=== PATIENT | female | born 1955 | race African-American/Black ===

== ENCOUNTER 2016-06-03 14:21 | Emergency (ER) | payer OTHER ==
[2016-06-03] MEDS ORDERED: Acetaminophen 325 MG TAB ONE (14:48)
[2016-06-03] MEDS ORDERED: predniSONE 20 MG TAB ONE (14:50)
--- NOTE | 2016-06-03 15:50 | RAD ---
PORTABLE CHEST: History: Malaise, cough. FINDINGS: I cannot exclude patchy infiltrate in the region of the lingula. There is a density that obscures p ortions of the left heart border in this region. Recommend better evaluation of the chest with upri ght PA and lateral views. IMPRESSION: Question lingular infiltrate. Recommend upright PA and lateral views of the chest. POS: [facility]
--- NOTE | 2016-06-03 16:14 | RAD ---
PA AND LATERAL CHEST 06/03/16 HISTORY: Cough. Portable exam showed density in the left mid lung obscuring heart border. PA view again shows abnormal density in the left mid lung field obscuring portions of the heart bord er. This is worrisome for subtle lingular infiltrate given the history of cough. Short term followup is recommended. IMPRESSION: Continued evidence of subtle lingular infiltrate. Recommend followup exam. POS: [facility]
--- NOTE | 2016-06-03 16:56 | PICIS ---
[facility] EMERGENCY RECORD TRIAGE (TueJun 03, 2016 14:32 BDON) TRIAGE NOTES: Generalized bodyaches with a cough. (TueJun 03, 2016 14:32 BDON) PATIENT: NAME: Greta Raphael, AGE: 61, GENDER: female, : Tue1955, TIME OF GREET: TueJun 03, 2016 14:22, PREFERRED LANGUAGE: Bahraini, ETHNICITY: Not or , ECODE BILLING MAP: [facility], SSN: [id number], Zip Code: [address], KG WEIGHT: 75.75, PHONE: , , , PERSON ID: [id number], PCP: Talya Qiu Justin. (TueJun 03, 2016 14:32 BDON) COMPLAINT: FLU LIKE SYMPTOMS. (TueJun 03, 2016 14:32 BDON) ADMISSION: URGENCY: 4 Non Urgent, ADMISSION SOURCE: Home, TRANSPORT: Walk-in, BED: TRIAGE. (TueJun 03, 2016 14:32 BDON) ASSESSMENT: Assessment: Generalized bodyaches with a cough, Symptoms began 3 days ago. (14:38 BDON) LMP: LMP: Menopause. (14:38 BDON) TREATMENTS IN PROGRESS: Treatments given Prehospital: tylenol 1100. (14:38 BDON) PROVIDERS: TRIAGE NURSE: May Otero RN. (TueJun 03, 2016 14:32 BDON) VITAL SIGNS: BP 108/60, Pulse 71, Resp 17, Temp 98.0, (Oral), Pain 3, O2 Sat 100, Time 06/03/2016 14:30. (14:30 BDON) PREVIOUS VISIT ALLERGIES: Sulfa (Sulfonamide Antibiotics). (TueJun 03, 2016 14:32 BDON) Sulfa (Sulfonamide Antibiotics). (14:38 BDON) KNOWN ALLERGIES Sulfa (Sulfonamide Antibiotics) CURRENT MEDICATIONS Protonix: TABLET, DELAYED RELEASE (ENTERIC COATED) : Strength - 20 mg : ORAL Patient Dose: once a day. (14:34 BDON) Lyrica: CAPSULE : Strength - 150 mg : ORAL Patient Dose: once a day. (14:34 BDON) unknown BP pill ...starts with A (14:35 BDON) Requip: TABLET : Strength - 5 mg : ORAL Patient Dose: 2 times a day. (14:36 BDON) [place]: TABLET : Strength - 10 mg-325 mg : ORAL Patient Dose: Unknown. (14:36 BDON) VITAL SIGNS (14:30 BDON) VITAL SIGNS: BP: 108/60, Pulse: 71, Resp: 17, Temp: 98.0 (Oral), Pain: 3, O2 sat: 100, Time: 06/03/2016 14:30. NURSING ASSESSMENT: ENT (14:43 BDON) CONSTITUTIONAL: Patient arrives ambulatory, Gait steady, History &a-1R&a+25V*p+0X*v5706A*c202B*c15G*c2P*p-0X&a-25V&a+1R Name: Greta Raphael : 1955 F61 MedRec: [id number] AcctNum: [id number] Prepared: Lauren Jun 03, 2016 18:00 by Interface Page 1 of 8 pMD [facility] EMERGENCY RECORD obtained from patient, Patient appears, uncomfortable, Patient cooperative, Patient alert, Oriented to person, place and time, Skin warm, Skin dry, Skin normal in color, Patient is well-groomed. PAIN: aching pain, generalized. ENT: Congestion, Able to swallow, Speech normal. RESPIRATORY/CHEST: Respiratory assessment findings include respiratory effort easy, Respirations regular, Conversing normally, Neck and chest exam findings include trachea midline, Associated with cough. SAFETY: Cart/Stretcher in lowest position, Hospital ID band on. NURSING PROCEDURE: BEDSIDE RADIOLOGY (15:06 CCRI) BEDSIDE RADIOLOGY: Bedside radiology performed by CC, Portable chest x-ray performed. NURSING PROCEDURE: DISCHARGE NOTE (16:29 BDON) DISCHARGE: Patient discharged to home, ambulating without assistance, Summary of Care printed/ provided, Patient requested and was provided an electronic copy of Discharge Instructions, Transition record given to patient, Discharge instructions given to patient, Simple or moderate discharge teaching performed, Prescriptions given and instructions on side effects given, Medication reconciliation form given, Above person(s) verbalized understanding of discharge instructions and follow-up care, Patient treated and evaluated by physician. ORDER DETAILS Order Name: ERRT * Smal Vol Neb Initial Trmt, Status: Active, Time: 14:57 06/03/2016, User: NIK, - Ordered for: MD Jett Kim, - Entered by: LYNN Otero, [facility] Jun 03, 2016 14:57, - Quantity: 1, Order Name: Influenza A&B Ag Screen, Status: Active, Time: 14:32 06/03/2016, User: NIK, - Ordered for: MD Jett Kim, - Entered by: LYNN Otero, [facility] Jun 03, 2016 14:32, - Quantity: 1, Order Name: XR Chest 1 View Portable, Status: Active, Time: 14:46 06/03/2016, User: SÁNCHEZ, - Ordered for: MD Jett Kim, - Entered by: MD Jett Kim - [facility] Jun 03, 2016 14:46, - Quantity: 1, Order Name: XR Chest Pa & Lat STANDARD, Status: Active, Time: 15:44 06/03/2016, User: SÁNCHEZ, - Ordered for: MD Jett Kim, - Entered by: MD Jett Kim [facility] Jun 03, 2016 15:44, - Quantity: 1. &a-1R&a+25V*p+0X*m0737S*c202B*c15G*c2P*p-0X&a-25V&a+1R Name: Greta Raphael : 1955 F61 MedRec: [id number] AcctNum: [id number] Prepared: TueJun 03, 2016 18:00 by Interface Page 2 of 8 pMD [facility] EMERGENCY RECORD MEDICATION ADMINISTRATION SUMMARY Drug Name: levofloxacin oral, Dose Ordered: 1 tab(s), Route: Oral, Status: Given, Time: 16:23 06/03/2016, Drug Name: *Tylenol, Dose Ordered: 650 mg, Route: Oral, Status: Given, Time: 14:57 06/03/2016, Drug Name: DuoNeb, Dose Ordered: 3 mL, Route: Nebulize, Status: Given, Time: 14:56 06/03/2016, Drug Name: predniSONE oral, Dose Ordered: 40 mg, Route: Oral, Status: Given, Time: 14:56 06/03/2016, *Additional information available in notes, Detailed record available in Medication Service section. MEDICATION SERVICE DuoNeb: Order: DuoNeb (ipratropium bromide/albuterol sulfate) - Dose: 3 mL : Nebulize Schedule: Now Ordered by: Carol Ann Jett MD Entered by: Carol Ann Jett MD [facility] Jun 03, 2016 14:45 Documented as given by: May Otero RN [facility] Jun 03, 2016 14:56 Patient, Medication, Dose, Route and Time verified prior to administration. Amount given: 3 ml, Correct patient, time, route, dose and medication confirmed prior to administration, Patient advised of actions and side-effects prior to administration, Allergies confirmed and medications reviewed prior to administration. levofloxacin oral: Order: levofloxacin oral (levofloxacin) - Dose: 1 tab(s) : Oral Schedule: Now Ordered by: Carol Ann Jett MD Entered by: Carol Ann Jett MD [facility] Jun 03, 2016 16:18 Documented as given by: May Otero RN [facility] Jun 03, 2016 16:23 Patient, Medication, Dose, Route and Time verified prior to administration. Site: Medication administered P.O., Correct patient, time, route, dose and medication confirmed prior to administration, Patient advised of actions and side-effects prior to administration, Allergies confirmed and medications reviewed prior to administration, Patient in position of comfort, Cart in lowest position, Family at bedside. predniSONE oral: Order: predniSONE oral (prednisone) - Dose: 40 mg : Oral Schedule: Now Ordered by: Carol Ann Jett MD Entered by: Carol Ann Jett MD [facility] Jun 03, 2016 14:46 Documented as given by: May Otero RN [facility] Jun 03, 2016 14:56 Patient, Medication, Dose, Route and Time verified prior to administration. Site: Medication administered P.O., Correct patient, time, route, dose and medication confirmed prior to administration, Patient advised of actions and side-effects prior to administration, &a-1R&a+25V*p+0X*a9702A*c202B*c15G*c2P*p-0X&a-25V&a+1R Name: Greta Raphael : 1955 F61 MedRec: [id number] AcctNum: [id number] Prepared: TueJun 03, 2016 18:00 by Interface Page 3 of 8 pMD [facility] EMERGENCY RECORD Allergies confirmed and medications reviewed prior to administration. Tylenol: Order: Tylenol (acetaminophen) - Dose: 650 mg : Oral Schedule: Now Notes: 650 mg tylenol Ordered by: Carol Ann Jett MD Entered by: Carol Ann Jett MD [facility] Jun 03, 2016 14:47 Documented as given by: May Otero RN [facility] Jun 03, 2016 14:57 Patient, Medication, Dose, Route and Time verified prior to administration. Site: Medication administered P.O., Correct patient, time, route, dose and medication confirmed prior to administration, Patient advised of actions and side-effects prior to administration, Allergies confirmed and medications reviewed prior to administration. HPI URI (14:54 KNGU) CHIEF COMPLAINT: Patient presents for evaluation of nasal congestion, Patient presents for evaluation of cough. HISTORIAN: History provided by patient, cough ache flu like symptoms x 2 days. LOCATION: Symptoms are generalized. QUALITY: Pain is dull in nature, described as aching. SEVERITY: Maximum severity of symptoms moderate, Currently symptoms are moderate. TIME COURSE: Gradual onset of symptoms, There has been no change in the patient's symptoms over time. ASSOCIATED WITH: Associated with chills, Associated with fever, No associated shortness of breath. EXACERBATED BY: Patient's condition exacerbated by nothing. RELIEVED BY: Patient's condition relieved by over the counter medications. ROS (14:56 KNGU) CONSTITUTIONAL: Historian reports fever, reports weakness. EYES: Negative eye review of systems. ENT: Historian reports rhinorrhea. CARDIOVASCULAR: Negative cardiovascular review of systems. RESPIRATORY: Historian reports cough, reports wheezing. GI: Negative gastrointestinal review of systems. MUSCULOSKELETAL: Negative musculoskeletal review of systems. SKIN: Negative skin review of systems. NEUROLOGIC: Negative neurologic review of systems. NOTES: All systems reviewed, negative except as described above. PAST MEDICAL HISTORY (14:38 BDON) MEDICAL HISTORY: Notes: fibermylagia, Flu vaccine not up to date, Tetanus not up to date, Pneumococcal vaccine not up to date, Past medical history includes history of hypertension, which has been &a-1R&a+25V*p+0X*k4787B*c202B*c15G*c2P*p-0X&a-25V&a+1R Name: Greta Raphael : 1955 F61 MedRec: [id number] AcctNum: [id number] Prepared: TueJun 03, 2016 18:00 by Interface Page 4 of 8 pMD [facility] EMERGENCY RECORD treated. FEMALE SURGICAL HISTORY: Patient has no surgical history. PSYCHIATRIC HISTORY: No previous psychiatric history. SOCIAL HISTORY: Patient denies alcohol use, Patient denies drug use, Patient currently uses tobacco, smokes cigarettes, Lives at home, with family. PHYSICAL EXAM (14:57 KNGU) CONSTITUTIONAL: Vital signs reviewed, Patient afebrile, Pulse normal, Blood pressure normal, Respiratory rate normal, Patient alert and oriented to person, place and time. HEAD: Head exam normal. EYES: Eye exam normal. ENT: Nose exam included findings of, clear nasal discharge, Pharynx exam normal. NECK: Neck exam normal. RESPIRATORY CHEST: Respiratory exam included findings of no respiratory distress, Wheezing present, Rhonchi present, Chest exam included findings of chest movement symmetrical. CARDIOVASCULAR: Cardiovascular assessment normal. ABDOMEN FEMALE: Abdominal exam normal. SKIN: Skin exam normal. PSYCHIATRIC: Psychiatric exam included findings of patient oriented to person place and time. EVENTS TRANSFER: Triage to Emergency Triage. (TueJun 03, 2016 14:32 BDON) Emergency Triage to Emergency Room -03. (14:33 BDON) Removed from Emergency Emergency Room -03. (16:44 BDON) DOCTOR NOTES (16:20 KNGU) TEXT: 61 yo F cough with acute bronchitis / possible pneumonia on xray start on levaquin also rx proair / prednisone follow up with pcp as needed. PATIENT STATUS: Patient has improved since arrival to emergency department. PATIENT PLAN: The patient will be discharged, The patient will follow up with primary care physician. DATA REVIEWED: Xray data reviewed, Discussed with family. PROBLEM LIST No recorded problems DIAGNOSIS (16:19 KNGU) FINAL: PRIMARY: Pneumonia, ADDITIONAL: Acute &a-1R&a+25V*p+0X*i1799Q*c202B*c15G*c2P*p-0X&a-25V&a+1R Name: Greta Raphael : 1955 F61 MedRec: [id number] AcctNum: [id number] Prepared: TueJun 03, 2016 18:00 by Interface Page 5 of 8 pMD [facility] EMERGENCY RECORD bronchitis. DISPOSITION PATIENT: Disposition Type: Discharge, Disposition: *Discharge Home. (16:19 KNGU) Patient left the department. (16:44 BDON) INSTRUCTION (16:19 KNGU) DISCHARGE: PNEUMONIA (ADULT), BRONCHITIS W/ WHEEZING (ADULT), BRONCHITIS, ABX TX (ADULT). FOLLOWUP: Talya Qiu, [place], [facility], [address] [place] [id number], . SPECIAL: please avoid tobacco smoke Please take medication as prescribed Follow-up with your primary physician as needed. PRESCRIPTION Levaquin oral: TABLET : 500 mg : ORAL : Quantity: 1 Unit: tab(s) Route: ORAL Schedule: once a day (after a meal) Dispense: * May substitute. Refills: No Refills . (16:17 KNGU) NOTES: No Refills. (16:17 KNGU) ProAir HFA: HFA AEROSOL WITH ADAPTER (GRAM) : 90 mcg : INHALATION : Quantity: 1 Unit: tab(s) Route: INHALATION Schedule: every 4 hours prn Dispense: 1 Unit: Tube May substitute. Refills: No Refills . (16:17 KNGU) NOTES: as needed for cough or wheezing No Refills. (16:17 KNGU) predniSONE oral: TABLET : 20 mg : ORAL : Quantity: 2 Unit: tab(s) Route: ORAL Schedule: once a day Dispense: 10 Unit: tab(s) May substitute. Refills: No Refills . (16:18 KNGU) NOTES: No Refills. (16:18 KNGU) IMAGING *DISCHARGE INSTRUCTIONS RECEIPT: Image captured from scanner. (16:40 BDON) Page 2 added. Image captured from scanner. (16:41 BDON) *SUPPLY CHARGE SHEET: Image captured from scanner. (16:41 BDON) ADMIN DIGITAL SIGNATURE: LYNN Otero, May. (16:44 BDON) MD Maliha, Carol Ann. (18:00 [facility]) RESULTS RADIOLOGY: XR Chest 1 View Portable Observe DT: TueJun 03, 2016 14:48, CXRP PORTABLE CHEST: &a-1R&a+25V*p+0X*k5284S*c202B*c15G*c2P*p-0X&a-25V&a+1R Name: Greta Raphael : 1955 F61 MedRec: [id number] AcctNum: [id number] Prepared: TueJun 03, 2016 18:00 by Interface Page 6 of 8 pMD [facility] EMERGENCY RECORD History: Malaise, cough. FINDINGS: I cannot exclude patchy infiltrate in the region of the lingula. There is a density that obscures p ortions of the left heart border in this region. Recommend better evaluation of the chest with upri ght PA and lateral views. IMPRESSION: Question lingular infiltrate. Recommend upright PA and lateral views of the chest. POS: [facility] . (16:16 [facility]) MICROBIOLOGY: Influenza A&B Ag Screen: [id number] Collection DT: TueJun 03, 2016 14:41, See comment below , @ ER ROOM#: [id number] Source: Nasal swab Spec Desc: , Influenza A Antigen: NEGATIVE for the , presence of , INFLUENZA A Antigen , Influenza B Antigen: NEGATIVE for the , presence of , INFLUENZA B Antigen , The rapid Flu A&B test can distinguish between influenza A , Influenza A&B Ag Screen See comment below , and B viruses, but it does not differentiate influenza , Influenza A&B Ag Screen See comment below , subtypes. , Influenza A&B Ag Screen See comment below , Influenza A&B Ag Screen See comment below , Influenza A&B Ag Screen See comment below , Influenza A&B Ag Screen See comment below , characteristics of this device with human specimens infected , Influenza A&B Ag Screen See comment below , with the 2008 H1N1 influenza virus have not been , Influenza A&B Ag Screen See comment below , established. For example: this test cannot distinguish , Influenza A&B Ag Screen See comment below , influenza infections caused by novel H1N1 influenza A , Influenza A&B Ag Screen See comment below , viruses versus seasonal influenza A viruses. , Influenza A&B Ag Screen See comment below , , Influenza A&B Ag Screen See comment below , A negative result does not exclude influenza virus , Influenza A&B Ag Screen See comment below , infection; therefore, if more conclusive testing is desired, , Influenza A&B Ag Screen See comment below , follow up confirmatory testing is warranted., &a-1R&a+25V*p+0X*x0821S*c202B*c15G*c2P*p-0X&a-25V&a+1R Name: RaphaelGreta : 1955 F61 MedRec: [id number] AcctNum: [id number] Prepared: TueJun 03, 2016 18:00 by Interface Page 7 of 8 pMD [facility] EMERGENCY RECORD Influenza A&B Ag Screen See comment below . (15:52 SÁNCHEZ) Ybarra: NIK=LYNN Otero, May CCRI=JASMYN Dyer Clemente KNGU=MD Maliha, Carol Ann &a-1R&a+25V*p+0X*b9598B*c202B*c15G*c2P*p-0X&a-25V&a+1R Name: Greta Raphael : 1955 F61 MedRec: [id number] AcctNum: [id number] Prepared: TueJun 03, 2016 18:00 by Interface Page 8 of 8 pMD MTDD
--- NOTE | 2016-06-03 17:07 | ERRECORD ---
[facility] EMERGENCY RECORD HPI URI (14:54 KNGU) CHIEF COMPLAINT: Patient presents for evaluation of nasal congestion, Patient presents for evaluation of cough. HISTORIAN: History provided by patient, cough ache flu like symptoms x 2 days. LOCATION: Symptoms are generalized. QUALITY: Pain is dull in nature, described as aching. SEVERITY: Maximum severity of symptoms moderate, Currently symptoms are moderate. TIME COURSE: Gradual onset of symptoms, There has been no change in the patient's symptoms over time. ASSOCIATED WITH: Associated with chills, Associated with fever, No associated shortness of breath. EXACERBATED BY: Patient's condition exacerbated by nothing. RELIEVED BY: Patient's condition relieved by over the counter medications. ROS (14:56 KNGU) CONSTITUTIONAL: Historian reports fever, reports weakness. EYES: Negative eye review of systems. ENT: Historian reports rhinorrhea. CARDIOVASCULAR: Negative cardiovascular review of systems. RESPIRATORY: Historian reports cough, reports wheezing. GI: Negative gastrointestinal review of systems. MUSCULOSKELETAL: Negative musculoskeletal review of systems. SKIN: Negative skin review of systems. NEUROLOGIC: Negative neurologic review of systems. NOTES: All systems reviewed, negative except as described above. PAST MEDICAL HISTORY (14:38 BDON) MEDICAL HISTORY: Notes: fibermylagia, Flu vaccine not up to date, Tetanus not up to date, Pneumococcal vaccine not up to date, Past medical history includes history of hypertension, which has been treated. FEMALE SURGICAL HISTORY: Patient has no surgical history. PSYCHIATRIC HISTORY: No previous psychiatric history. SOCIAL HISTORY: Patient denies alcohol use, Patient denies drug use, Patient currently uses tobacco, smokes cigarettes, Lives at home, with family. KNOWN ALLERGIES Sulfa (Sulfonamide Antibiotics) CURRENT MEDICATIONS Protonix: TABLET, DELAYED RELEASE (ENTERIC COATED) : Strength - 20 mg : ORAL Patient Dose: once a day. (14:34 BDON) Lyrica: &a-1R&a+25V*p+0X*h2990U*c202B*c15G*c2P*p-0X&a-25V&a+1R Name: Greta Raphael : 1955 F61 MedRec: [id number] AcctNum: [id number] Prepared: TueJun 03, 2016 18:00 by Interface Page 1 of 3 pMD [facility] EMERGENCY RECORD CAPSULE : Strength - 150 mg : ORAL Patient Dose: once a day. (14:34 BDON) unknown BP pill ...starts with A (14:35 BDON) Requip: TABLET : Strength - 5 mg : ORAL Patient Dose: 2 times a day. (14:36 BDON) [place]: TABLET : Strength - 10 mg-325 mg : ORAL Patient Dose: Unknown. (14:36 BDON) VITAL SIGNS (14:30 BDON) VITAL SIGNS: BP: 108/60, Pulse: 71, Resp: 17, Temp: 98.0 (Oral), Pain: 3, O2 sat: 100, Time: 06/03/2016 14:30. PHYSICAL EXAM (14:57 KNGU) CONSTITUTIONAL: Vital signs reviewed, Patient afebrile, Pulse normal, Blood pressure normal, Respiratory rate normal, Patient alert and oriented to person, place and time. HEAD: Head exam normal. EYES: Eye exam normal. ENT: Nose exam included findings of, clear nasal discharge, Pharynx exam normal. NECK: Neck exam normal. RESPIRATORY CHEST: Respiratory exam included findings of no respiratory distress, Wheezing present, Rhonchi present, Chest exam included findings of chest movement symmetrical. CARDIOVASCULAR: Cardiovascular assessment normal. ABDOMEN FEMALE: Abdominal exam normal. SKIN: Skin exam normal. PSYCHIATRIC: Psychiatric exam included findings of patient oriented to person place and time. MEDICATION ADMINISTRATION SUMMARY Drug Name: levofloxacin oral, Dose Ordered: 1 tab(s), Route: Oral, Status: Given, Time: 16:23 06/03/2016, Drug Name: *Tylenol, Dose Ordered: 650 mg, Route: Oral, Status: Given, Time: 14:57 06/03/2016, Drug Name: DuoNeb, Dose Ordered: 3 mL, Route: Nebulize, Status: Given, Time: 14:56 06/03/2016, Drug Name: predniSONE oral, Dose Ordered: 40 mg, Route: Oral, Status: Given, Time: 14:56 06/03/2016, *Additional information available in notes, Detailed record available in Medication Service section. DOCTOR NOTES (16:20 KNGU) TEXT: 61 yo F cough with acute bronchitis / possible pneumonia on xray start on levaquin &a-1R&a+25V*p+0X*f7792X*c202B*c15G*c2P*p-0X&a-25V&a+1R Name: Greta Raphael : 1955 F61 MedRec: [id number] AcctNum: [id number] Prepared: Lauren Jun 03, 2016 18:00 by Interface Page 2 of 3 pMD [facility] EMERGENCY RECORD also rx proair / prednisone follow up with pcp as needed. PATIENT STATUS: Patient has improved since arrival to emergency department. PATIENT PLAN: The patient will be discharged, The patient will follow up with primary care physician. DATA REVIEWED: Xray data reviewed, Discussed with family. PROBLEM LIST No recorded problems DIAGNOSIS (16:19 KNGU) FINAL: PRIMARY: Pneumonia, ADDITIONAL: Acute bronchitis. PRESCRIPTION Levaquin oral: TABLET : 500 mg : ORAL : Quantity: 1 Unit: tab(s) Route: ORAL Schedule: once a day (after a meal) Dispense: * May substitute. Refills: No Refills . (16:17 KNGU) NOTES: No Refills. (16:17 KNGU) ProAir HFA: HFA AEROSOL WITH ADAPTER (GRAM) : 90 mcg : INHALATION : Quantity: 1 Unit: tab(s) Route: INHALATION Schedule: every 4 hours prn Dispense: 1 Unit: Tube May substitute. Refills: No Refills . (16:17 KNGU) NOTES: as needed for cough or wheezing No Refills. (16:17 KNGU) predniSONE oral: TABLET : 20 mg : ORAL : Quantity: 2 Unit: tab(s) Route: ORAL Schedule: once a day Dispense: 10 Unit: tab(s) May substitute. Refills: No Refills . (16:18 KNGU) NOTES: No Refills. (16:18 KNGU) DISPOSITION PATIENT: Disposition Type: Discharge, Disposition: *Discharge Home. (16:19 KNGU) Patient left the department. (16:44 BDON) Ybarra: NIK=LYNN Otero, May POZO=MD Maliha, Carol Ann &a-1R&a+25V*p+0X*i5991Y*c202B*c15G*c2P*p-0X&a-25V&a+1R Name: Greta Raphael : 1955 F61 MedRec: [id number] AcctNum: [id number] Prepared: Lauren Jun 03, 2016 18:00 by Interface Page 3 of 3 pMD MTDD
== END 2016-06-03 16:29 | disposition home or self-care (01) ==
LOC: NAV ERS 14:21
DX: J18.9 Pneumonia, unspecified organism (principal); J20.9 Acute bronchitis, unspecified; I10 Essential (primary) hypertension; F17.210 Nicotine dependence, cigarettes, uncomplicated
CPT/HCPCS: 71010; 71020; 94640; J7506; J7620

== ENCOUNTER 2017-01-03 21:00 | Emergency (ER) | payer OTHER ==
[2017-01-03 21:41] LABS: #Basophils 0.1 thou/uL (0.0-0.2); #Eosinphils 0.2 thou/uL (0.0-0.7); #Monocytes 0.3 thou/uL (0.11-0.59); #Neutrophils 3.7 thou/uL (1.40-6.50); %Basophils 1.4 % (0.0-1.0); %Eosinophils 3.4 % (0.0-10.0); %Lymphocytes 31.9 % (21.0-51.0); %Monocytes 5.2 % (0.0-10.0); %Neutrophils 58.2 % (42.0-75.0); Hemoglobin 12.6 g/dL (12.0-16.0); Mean Corpuscular HGB CONC 32.4 g/dL (32.0-36.0); Mean Corpuscular Hemoglobin 26.6 pg (27.0-31.0); Mean Corpuscular Volume 82.2 fl (81.0-99.0); Mean Platelet Volume 6.2 fL (7.4-10.4); Platelet Count 253 thou/uL (130-400); RBC Distribution Width 12.2 % (11.5-14.5); Red Blood Cell (RBC) Count 4.75 mill/uL (4.20-5.40); White Blood Cell (WBC) Count 6.4 thou/uL (4.8-10.8)
[2017-01-03] MEDS ORDERED: Sodium Chloride 0.9% 500 ML ONE (21:51)
[2017-01-03 22:02] LABS: ALT (SGPT) 19 U/L (8-55); AST (SGOT) 25 U/L (5-34); Albumin 3.6 g/dL (3.5-5.0); Alkaline Phosphatase 74 U/L (40-150); Anion Gap 15 mmol/L (10-20); BUN (Urea Nitrogen) 12 mg/dL (9.8-20.1); Bilirubin, Total 0.3 mg/dL (0.2-1.2); CK (CPK) 359 U/L (29-168); Calc. Creatinine Clearance 0 mL/min (70-130); Calcium 9.1 mg/dL (7.8-10.44); Carbon Dioxide 20 mmol/L (22-29); Chloride 113 mmol/L (98-107); Estimated GFR-MDRD 80; Globulin 3.3 g/dL (2.4-3.5); Glucose 112 mg/dL (70-105); Potassium 3.5 mmol/L (3.5-5.1); Protein, Total 6.9 g/dL (6.0-8.3); Sodium 144 mmol/L (136-145)
[2017-01-03 22:03] LABS: CKMB 4.8 ng/mL (0-6.6); Troponin I Less than 0.010 ng/mL (< 0.028)
[2017-01-03 22:10] LABS: Bilirubin Negative (Negative); Blood, Urine Negative (Negative); Clarity Clear (Clear); Glucose, Urine (Dipstick) Negative (Negative); Leukocyte Small (Negative); Nitrite Negative (Negative); Protein, Urine (Dipstick) Negative (Neg-Trace); Specific Gravity, Urine 1.015 (1.005-1.030); Urobilinogen 0.2 mg/dL (0.2-1.0); pH, Urine 5.5 (5.0-9.0)
[2017-01-03 22:23] LABS: Bacteria/HPF 1+ HPF (None Seen); RBC/HPF 0-3 HPF (0-3)
== END 2017-01-03 22:38 | disposition home or self-care (01) ==
LOC: NAV ERS 21:00
DX: E86.0 Dehydration (principal); I10 Essential (primary) hypertension; F17.210 Nicotine dependence, cigarettes, uncomplicated; Z79.899 Other long term (current) drug therapy
CPT/HCPCS: 80053; 81003; 81015; 82550; 82553; 84484; 85025; 93005; 96360; J7050

== ENCOUNTER 2018-12-09 17:25 | Emergency (ER) | payer OTHER ==
[2018-12-09 18:11] LABS: #Basophils 0.1 thou/uL (0.0-0.2); #Eosinphils 0.1 thou/uL (0.0-0.7); #Lymphocytes 1.5 thou/uL (1.20-3.40); #Monocytes 0.4 thou/uL (0.11-0.59); #Neutrophils 3.7 thou/uL (1.40-6.50); %Basophils 1.2 % (0.0-1.0); %Eosinophils 2.5 % (0.0-10.0); %Lymphocytes 26.5 % (21.0-51.0); %Monocytes 7.1 % (0.0-10.0); %Neutrophils 62.7 % (42.0-75.0); Hemoglobin 12.6 g/dL (12.0-16.0); Mean Corpuscular HGB CONC 33.1 g/dL (32.0-36.0); Mean Corpuscular Hemoglobin 27.2 pg (27.0-31.0); Mean Corpuscular Volume 82.1 fL (78.0-98.0); Mean Platelet Volume 6.3 fL (7.4-10.4); Platelet Count 270 thou/uL (130-400); RBC Distribution Width 12.6 % (11.5-14.5); Red Blood Cell (RBC) Count 4.66 mill/uL (4.20-5.40); White Blood Cell (WBC) Count 5.8 thou/uL (4.8-10.8)
[2018-12-09 18:20] LABS: ALT (SGPT) 25 U/L (8-55); AST (SGOT) 34 U/L (5-34); Alkaline Phosphatase 73 U/L (40-150); Anion Gap 16 mmol/L (10-20); BUN (Urea Nitrogen) 10 mg/dL (9.8-20.1); Bilirubin, Total 0.6 mg/dL (0.2-1.2); CK (CPK) 743 U/L (29-168); Calc. Creatinine Clearance 0 mL/min (70-130); Calcium 9.6 mg/dL (7.8-10.44); Carbon Dioxide 22 mmol/L (23-31); Chloride 108 mmol/L (98-107); Estimated GFR-MDRD 83; Globulin 3.4 g/dL (2.4-3.5); Glucose 115 mg/dL (80-115); Potassium 3.5 mmol/L (3.5-5.1); Protein, Total 7.4 g/dL (6.0-8.3); Sodium 142 mmol/L (136-145)
[2018-12-09] MEDS ORDERED: Bacitracin 1 PK ONE (18:22)
--- NOTE | 2018-12-09 18:28 | CT ---
HEAD CT WITHOUT CONTRAST: 12/09/18 HISTORY: Evaluation for fall from standing landing on hard surface. Pain. COMPARISON: None. FINDINGS: There is a left frontal scalp hematoma. Calvarium is intact. Adequate aeration of the sinuses and mas toid air cells. No parenchymal hemorrhage. No extra-axial hematoma. No midline shift. Basilar cisterns are patent. Brain volume, age appropriate. Cortical ureña-white matter differentiation is preserved. No evidence of hydrocephalus. IMPRESSION: Left frontal scalp hematoma. No intracranial posttraumatic sequela. POS: [facility]
--- NOTE | 2018-12-09 18:31 | RAD ---
RIGHT SHOULDER THREE VIEWS: 12/09/18 HISTORY: Pain. Injury. COMPARISON: None. FINDINGS: Glenohumeral joint space appears to be preserved. No fracture or dislocation. Prominent subacromial s pur is noted. The visualized right ribs are unremarkable. IMPRESSION: No fracture or dislocation. POS: [facility]
--- NOTE | 2018-12-09 18:42 | CT ---
MAXILLOFACIAL CT: 12/09/18 HISTORY: Fall, landed on head and face. Bruising over the left eyebrow. COMPARISON: None. FINDINGS: There is a left frontal and left supraorbital hematoma. Bilateral ocular lenses are appropriately loc ated. Both globes are intact. Retrobulbar fat is preserved. Symmetric attenuation of the optic nerve and ocular rectus muscles. Aerodigestive tract is patent. No mucosal abnormality. Symmetric attenuation of the visualized parotid and submandibular gland. Pterygoid plates are intact. Zygomatic arches are intact. Maxilla and mandible are intact. No fracture. The patient is edentulous. Adequate aeration of the visualized paranasal sinuses and mastoid air cells. Bilaterally, osteomeatal complexes are patent. Intact midline nasal septum. Osseous margins of the orbits are maintained. No evidence of a nasal bone fracture. IMPRESSION: 1. Left supraorbital and left frontal hematoma. 2. No maxillofacial fracture. POS: [facility]
== END 2018-12-09 19:00 | disposition home or self-care (01) ==
LOC: NAV ERS 17:25
DX: S00.83XA Contusion of other part of head, initial encounter (principal); S40.011A Contusion of right shoulder, initial encounter; I45.2 Bifascicular block; I10 Essential (primary) hypertension; F17.210 Nicotine dependence, cigarettes, uncomplicated; Z79.82 Long term (current) use of aspirin; Z79.899 Other long term (current) drug therapy; W18.30XA Fall on same level, unspecified, initial encounter
CPT/HCPCS: 70450; 70486; 80053; 82550; 84484; 85025; 93005

== ENCOUNTER 2019-03-13 11:53 | Emergency (ER) | payer OTHER | END 2019-03-13 12:40 | disposition home or self-care (01) | LOC: NAV ERS 11:53 | DX: J01.90 Acute sinusitis, unspecified (principal); I10 Essential (primary) hypertension; F17.210 Nicotine dependence, cigarettes, uncomplicated; Z79.899 Other long term (current) drug therapy ==

== ENCOUNTER 2019-10-03 02:37 | Emergency (ER) | payer OTHER ==
[2019-10-03 03:10] LABS: #Eosinphils 0.2 thou/uL (0.0-0.7); #Lymphocytes 1.9 thou/uL (1.20-3.40); #Monocytes 0.5 thou/uL (0.11-0.59); #Neutrophils 4.7 thou/uL (1.40-6.50); %Basophils 0.6 % (0.0-1.0); %Lymphocytes 25.7 % (21.0-51.0); %Neutrophils 63.6 % (42.0-75.0); Hemoglobin 11.7 g/dL (12.0-16.0); Mean Corpuscular HGB CONC 31.9 g/dL (32.0-36.0); Mean Corpuscular Hemoglobin 27.8 pg (27.0-31.0); Mean Corpuscular Volume 87.2 fL (78.0-98.0); Mean Platelet Volume 6.4 fL (7.4-10.4); Platelet Count 239 thou/uL (130-400); RBC Distribution Width 13.6 % (11.5-14.5); Red Blood Cell (RBC) Count 4.18 mill/uL (4.20-5.40); White Blood Cell (WBC) Count 7.3 thou/uL (4.8-10.8)
[2019-10-03 03:27] LABS: ALT (SGPT) 19 U/L (8-55); AST (SGOT) 18 U/L (5-34); Albumin 3.7 g/dL (3.4-4.8); Alkaline Phosphatase 62 U/L (40-110); Anion Gap 11 mmol/L (10-20); BUN (Urea Nitrogen) 18 mg/dL (9.8-20.1); Bilirubin, Total 0.3 mg/dL (0.2-1.2); Calc. Creatinine Clearance 0 mL/min (70-130); Calcium 8.6 mg/dL (7.8-10.44); Carbon Dioxide 20 mmol/L (23-31); Chloride 111 mmol/L (98-107); Estimated GFR-MDRD 80; Globulin 3.2 g/dL (2.4-3.5); Glucose 90 mg/dL (80-115); Potassium 3.9 mmol/L (3.5-5.1); Protein, Total 6.9 g/dL (6.0-8.3); Sodium 138 mmol/L (136-145)
[2019-10-03] MEDS ORDERED: Aspirin Chewable 81 MG TAB ONE (04:05)
--- NOTE | 2019-10-03 10:23 | RAD ---
PORTABLE CHEST 1 VIEW: DATE: 10/03/2019. TIME: 3:11 AM. HISTORY: Chest pain, shortness of breath. FINDINGS: Comparison is made with the exam of 06/03/2016. The heart size is normal. The lungs are expanded wit hout lobar consolidation, pneumothoraces, or pleural effusions. IMPRESSION: No acute process. POS: [facility]
== END 2019-10-03 07:02 | disposition short-term general hospital (02) ==
LOC: NAV ERS 02:37
DX: R07.9 Chest pain, unspecified (principal); I10 Essential (primary) hypertension; F17.210 Nicotine dependence, cigarettes, uncomplicated; Z79.891 Long term (current) use of opiate analgesic; Z79.899 Other long term (current) drug therapy
CPT/HCPCS: 36415; 71045; 80053; 83880; 84484; 85025; 93005; 94760

== ENCOUNTER 2021-09-05 10:47 | Emergency (ER) | payer OTHER, MEDICARE | END 2021-09-05 11:20 | disposition home or self-care (01) | LOC: NAV ERS 10:47 | DX: M54.42 Lumbago with sciatica, left side (principal); G89.29 Other chronic pain; I10 Essential (primary) hypertension; F17.210 Nicotine dependence, cigarettes, uncomplicated; Z79.82 Long term (current) use of aspirin; Z79.899 Other long term (current) drug therapy | CPT/HCPCS: 99283 ==

== ENCOUNTER 2024-05-10 05:37 | Emergency (ER) | payer OTHER ==
[2024-05-10] MEDS ORDERED: methylPREDNISolone Sod Succ/PF 125 MG/2 ML VIAL ONE (05:59)
== END 2024-05-10 06:24 | disposition home or self-care (01) ==
LOC: NAV ERS 05:37
DX: M54.42 Lumbago with sciatica, left side (principal); I10 Essential (primary) hypertension; F17.210 Nicotine dependence, cigarettes, uncomplicated
CPT/HCPCS: 96372; 99283; J2919